=== PATIENT | female | born 1950 | race Caucasian/White ===

== ENCOUNTER 2024-01-18 13:08 | Emergency (ER) | payer SELFPAY ==
[2024-01-18 13:10] VITALS: BP 137/96
[2024-01-18 13:38] LABS: % Basophils 0.7 % (0-2); % Eosinophils 1.4 % (0-6); % Immature Granulocytes 0.2 % (0-0.5); % Lymphocytes 19.2 % (20.5-51.1); % Monocytes 4.1 % (1.7-9.3); % Neutrophils 74.4 % (42.2-75.2); Absolute Eosinophils 0.1 10^3/uL (0-0.7); Absolute Lymphocytes 1.1 10^3/uL (1.2-3.4); Absolute Monocytes 0.2 10^3/uL (0.1-0.6); Absolute Neutrophils 4.3 10^3/uL (1.4-6.5); Hematocrit 40.6 % (37.0-47.0); Hemoglobin 12.9 g/dL (12.0-16.0); Mean Corp Hgb Conc. 31.8 g/dL (33.0-37.0); Mean Corpuscular Hgb 29.5 pg (27.0-31.0); Mean Corpuscular Volume 92.7 fL (81.0-99.0); Mean Platelet Volume 9.9 fL (7.4-10.4); Nucleated Red Blood Cells % 0 %; Platelet Count 286 10^3/uL (130-400); Red Blood Cell Count 4.38 10^6/uL (4.20-5.40); Red Cell Dist. Width 14.3 % (11.5-14.5); White Blood Cell Count 5.8 10^3/uL (4.8-10.8)
[2024-01-18 13:58] LABS: ALT (SGPT) 17 U/L (0-35); AST (SGOT) 22 U/L (14-36); Albumin 4.5 g/dl (3.5-5.0); Alkaline Phosphatase 80 U/L (38-126); Blood Urea Nitrogen 18 mg/dl (7-17); Calcium 10.2 mg/dl (8.4-10.2); Carbon Dioxide 28 mmol/L (22-30); Chloride 102 mmol/L (98-107); Glucose 185 mg/dl (70-99); Potassium 3.4 mmol/L (3.5-5.1); Sodium 139 mmol/L (135-145); Total Bilirubin 0.5 mg/dl (0.2-1.3); Total Protein 6.5 g/dl (6.3-8.2)
[2024-01-18 14:07] LABS: Troponin I < 0.012 ng/ml
[2024-01-18 15:02] VITALS: BP 123/94
[2024-01-18 15:32] VITALS: BP 123/94
--- NOTE | 2024-01-18 15:36 | ED.GENMED ---
History of Present Illness
General
Chief Complaint: Chest Pain
Source: patient, spouse and family (Son)
Exam Limitations: none
Time Seen by Provider: 01/18/24 15:14
Nursing documentation reviewed up to this point in time: agreed with
History of Present Illness
History of Present Illness:
73-year-old female with a past medical history of hypertension, hyperlipidemia, diabetes, vascular dementia who presents to the emergency room for evaluation of upper abdominal discomfort and abnormal EKG. Patient is somewhat limited as a historian
as she has a history of vascular dementia but her family is at bedside and helps to provide collateral history. She recently moved from [place] to be closer to her family. Medical records were not sent over to her new primary doctor as of yet.
Today she had an appoint with her primary doctor because she has been complaining of occasional pain in the upper abdomen under the left breast. It seems to be worse with movement, no other clear triggers noted. It sounds like onset of symptoms
started shortly after a cold during which she was coughing and initially they thought it could be related to irritation/strain of the ribs from coughing but symptoms have persisted for 4 weeks now which prompted them to schedule PCP appointment to
have this evaluated. At the appointment she had an EKG which was abnormal and so she was referred to the emergency room be assessed. At present patient denies any symptoms and says that she feels well. Patient and family not noticed any
respiratory issues. No vomiting. She is still eating. No other symptoms noted. She has no known history of heart problems.
Review of Systems
Review of Systems
All Other Systems: ROS reviewed and negative except as documented in HPI and ROS
Constitutional: Denies fever
Respiratory: Denies cough or trouble breathing
Cardiac: Denies chest pain or palpitations
ABD/GI: Reports abdominal pain (Intermittent-denies of present); Denies nausea or vomiting
: Denies flank pain
Musculoskeletal: Denies edema, neck pain or back pain
Neurological: Denies headache
Phy Exam
Physical Exam
Physical Exam:
General: Awake, alert; no acute distress
Head: Normocephalic, atraumatic
Eyes: Conjunctiva normal, sclera anicteric
Throat: Airway intact, handling secretions
Neck: Trachea midline, supple without meningismus
Lungs: Clear to auscultation bilaterally, no wheezing, rales, rhonchi
Heart: Regular rate and rhythm, no murmurs, gallops, or rubs
Abd: Soft, non distended, nontender
Neuro: No gross deficit
Skin: no rash
Extremities: Warm and well-perfused with no edema
Scores
Heart Failure Risk
Heart Failure Risk Score: Not Applicable
Heart Score for Chest Pain Patients
STEMI patient?: Not applicable
Withdrawal Assessment of Alcohol
Withdrawal Assessment Completed?: Not applicable
Course
Orders/Labs/Results
Orders:
Orders
01/18/24 13:14
Electrocardiogram (*1) Urgent
Reason for Study: Abnormal EKG
EKG- Treatment ONCE
01/18/24 13:24
CMP [Comprehensive Metabolic Panel] Urgent
Complete Blood Count/With Diff Urgent
Lipase Urgent
Comment: ADD ON
Troponin I Urgent
01/18/24 15:41
Add On- LAB Urgent
Tests Added?: lipase
CR Chest - 2 Views Urgent
Comment:
Reason For Exam: LUQ pain s/p viral illness/cough
Abnormal Lab Results
01/18/24
13:24
MCHC 31.8 L g/dL
(33.0-37.0)
Absolute Lymphs (auto) 1.1 L 10^3/uL
(1.2-3.4)
Lymphocytes % 19.2 L %
(20.5-51.1)
Potassium 3.4 L mmol/L
(3.5-5.1)
BUN 18 H mg/dl
(7-17)
Creatinine 1.2 H mg/dL
(0.6-1.0)
Glucose 185 H mg/dl
(70-99)
01/18/24 13:24
01/18/24 13:24
Vital Signs
Initial and Last Documented VS:
Initial Vital Signs
Temp Pulse Resp BP Pulse Ox
36.9 C 88 16 137/96 96
01/18/24 13:10 01/18/24 13:10 01/18/24 13:10 01/18/24 13:10 01/18/24 13:10
Last Documented Vital Signs
Temp Pulse Resp BP Pulse Ox
36.9 C 75 21 123/94 93
01/18/24 13:10 01/18/24 15:32 01/18/24 15:32 01/18/24 15:32 01/18/24 15:32
MDM/Problems Addressed
Differential Diagnosis Includes:
Costochondritis, rib fracture, pneumothorax, left lower lobe pneumonia, gastritis, angina/ACS considered somewhat less likely based on history
MDM/Problems Addressed:
73-year-old female presents with her family that she was sent in by her primary doctor after having an abnormal EKG; she was being seen in the office for intermittent left upper quadrant abdominal pain that started 4 weeks ago after she was getting
over cold/cough. Currently symptom-free in the emergency room. Vitals are normal. Exam as above. Will check repeat EKG. Check labs including a CBC and a CMP, troponin. Check lipase. Will check chest x-ray to rule out a left lower lobe
pneumonia. Will reassess after the above.
Initial labs reviewed: CBC unremarkable, CMP shows creatinine of 1.2�unclear baseline. Mild hyperglycemia in the setting of known diabetes. Marginal hypokalemia. Troponin undetectable. Awaiting chest x-ray.
Chest x-ray reviewed by me shows no acute disease. Patient vitals have been stable, remained symptom-free and well-appearing. She is stable for discharge, will refer to cardiology for outpatient follow-up of her abnormal EKG. Can follow-up with
her primary care physician as scheduled. Patient and family are very comfortable with this plan. Spoke about return precautions and all questions were answered.
*Radiology
Radiology exam reviewed: preliminary read by ED provider
*Pulse Oximetry
Patient hypoxic: no
*EKG
Interpreted by ED Provider?: Yes
Comparison EKG: no comparison EKG present
Heart Rate: 85
Rate: normal
Rhythm: sinus
[place]: normal axis
Interval: normal interval
QRS Pattern: normal QRS
Ischemia: other (Inferior infarct age undetermined, poor R wave progression)
*Critical Care Note
Total Time (30-74mins, 75-104mins- exclusive of procedures): Not Applicable
Data Reviewed
Source: patient, spouse, family and physician (Primary care physician who called ahead)
Further Testing Considered But Not Given:
Considered need for CT abdomen or upper abdominal ultrasound but with no symptoms at present and no abdominal tenderness no indication for emergent abdominal imaging
Patient Management
Discussion with other providers: PCP
ED Attending Note
-
Portions of this chart may have been created with voice recognition software.� Occasional wrong word or��sound alike� substitutions may have occurred due to the inherent limitations of voice recognition software.
Discharge Plan
Departure
Patient Disposition: Home (Routine Discharge)
Date of Disposition: 01/18/24
Time of Disposition: 16:17
Patient with high blood pressure during this ER visit?: No
Discharge Problem:
Intermittent upper abdominal pain, Abnormal ECG, Creatinine elevation, Electrolyte abnormality
Instructions: Costochondritis (DC), Chest Pain CBC Follow Up
Referrals:
Misha Limon MD [Active] - Call in 1-3 days for appt (Cardiology--follow up for further testing regarding abnormal EKG)
Gayatri Hickey DO [Family Provider] - Call in 1-3 days for appt (Call to schedule follow up after your ED visit and to discuss follow up blood work)
Activity Restrictions/Additional Instructions:
Thank you for visiting the Emergency Department at [facility].
1. Please schedule a follow up appointment as directed. Call first thing tomorrow morning to make an appointment.
2. If indicated, please take your medications as instructed and indicated on discharge paperwork.
3. If any of your symptoms do not improve, or persist, or become more severe within 6-12 hours, please return to the emergency department for further care.
4. Please return to the emergency department if you develop a headache, neck pain/stiffness, fever greater than 100.4F, chest pain, shortness of breath, persistent nausea, vomiting, slurred speech, difficulty walking, numbness/tingling, weakness,
signs of infection or any other symptoms that are worrisome to you.
Please call [phone] if you have any questions.
Interventions
Interventions:
*Risk Screen - Suicide Last Done: 01/18/24 15:32
*General Assessment Last Done: 01/18/24 13:10
*Neglect/Abuse Screening Last Done: 01/18/24 15:32
*ED COVID-19 Vaccine History Last Done: 01/18/24 13:10
ED- Cardiac Assessment Last Done: 01/18/24 15:30
Discharge Date and Time
Print Language: UZBEK
[2024-01-18 16:11] LABS: Lipase 42 U/L (23-300)
[2024-01-18 16:16] VITALS: BP 144/94
== END 2024-01-18 16:30 | disposition home or self-care (01) ==
LOC: EMR 13:08
PROVIDERS: Emergency Medicine; EMERGENCY PHYSICIAN Emergency Medicine; FAMILY PHYSICIAN Family Medicine
DX: R10.12 Left upper quadrant pain (principal); R94.31 Abnormal electrocardiogram [ECG] [EKG]; R79.89 Other specified abnormal findings of blood chemistry; E87.8 Other disorders of electrolyte and fluid balance, not elsewhere classified
CPT/HCPCS: 99285; 71046; 80053; 83690; 84484; 85025; 93005

== ENCOUNTER → 2024-05-28 12:58 | Outpatient (REF) | payer MEDICARE, OTHER, SELFPAY | LOC: HWRAD 12:58 | PROVIDERS: ATTENDING PHYSICIAN Family Medicine | DX: Z78.0 Asymptomatic menopausal state (principal); Z12.31 Encounter for screening mammogram for malignant neoplasm of breast; R07.81 Pleurodynia | CPT/HCPCS: 71101; 77063; 77067; 77080 ==

== ENCOUNTER → 2024-08-04 10:47 | Outpatient (REF) | payer MEDICARE, OTHER, SELFPAY | LOC: RAD 10:47 | PROVIDERS: ATTENDING PHYSICIAN Student in an Organized Health Care Education/Training Program | DX: R91.8 Other nonspecific abnormal finding of lung field (principal) | CPT/HCPCS: 71250 ==

== ENCOUNTER 2024-09-05 17:37 | Emergency (ER) | payer MEDICARE, OTHER, SELFPAY ==
[2024-09-05 17:42] VITALS: BP 145/91
[2024-09-05 18:26] LABS: % Basophils 0.8 % (0-2); % Eosinophils 1.1 % (0-6); % Immature Granulocytes 0.3 % (0-0.5); % Lymphocytes 22.6 % (20.5-51.1); % Monocytes 5.1 % (1.7-9.3); % Neutrophils 70.1 % (42.2-75.2); Absolute Basophils 0.1 10^3/uL (0-0.2); Absolute Eosinophils 0.1 10^3/uL (0-0.7); Absolute Lymphocytes 1.5 10^3/uL (1.2-3.4); Absolute Monocytes 0.3 10^3/uL (0.1-0.6); Absolute Neutrophils 4.7 10^3/uL (1.4-6.5); Hematocrit 40.8 % (37.0-47.0); Hemoglobin 13.6 g/dL (12.0-16.0); Mean Corp Hgb Conc. 33.3 g/dL (33.0-37.0); Mean Corpuscular Hgb 29.4 pg (27.0-31.0); Mean Corpuscular Volume 88.1 fL (81.0-99.0); Mean Platelet Volume 9.3 fL (7.4-10.4); Nucleated Red Blood Cells % 0 %; Platelet Count 350 10^3/uL (130-400); Red Blood Cell Count 4.63 10^6/uL (4.20-5.40); Red Cell Dist. Width 14.5 % (11.5-14.5); White Blood Cell Count 6.6 10^3/uL (4.8-10.8)
[2024-09-05 18:42] LABS: ALT (SGPT) 22 U/L (0-35); AST (SGOT) 22 U/L (14-36); Albumin 4.6 g/dl (3.5-5.0); Alkaline Phosphatase 109 U/L (38-126); Blood Urea Nitrogen 21 mg/dl (7-17); Calcium 10.3 mg/dl (8.4-10.2); Carbon Dioxide 27 mmol/L (22-30); Chloride 102 mmol/L (98-107); Glucose 105 mg/dl (70-99); Lipase 50 U/L (23-300); Potassium 3.8 mmol/L (3.5-5.1); Sodium 138 mmol/L (135-145); Total Bilirubin 0.7 mg/dl (0.2-1.3); Total Protein 7.2 g/dl (6.3-8.2); eGFR 58.75
[2024-09-05 19:46] VITALS: BMI 31.2
[2024-09-05 20:10] VITALS: BP 140/96
--- NOTE | 2024-09-05 20:15 | ED.GENMED ---
Addendum entered and electronically signed by Willian Palomino, DO 09/05/24 22:52:
Update CT noted, will confirm she is a non-smoker, started on a bowel regimen
Original Note:
History of Present Illness
General
Chief Complaint: Abdominal Pain
Source: patient and spouse
Exam Limitations: dementia
Time Seen by Provider: 09/05/24 19:36
History of Present Illness
History of Present Illness:
74-year-old female with dementia diabetes hypertension and chronic constipation presents with abdominal pain mid upper abdomen last evening, better today, no fevers no nausea no vomiting she is hungry, thirsty did not drink much today
brought her in to be evaluated, denies any chest pain or shortness of breath denies any prior abdominal surgeries last normal bowel movement was 5 days ago
Past History
Past History
ED Past Medical History: HTN, NIDDM and Psychiatric (Dementia)
ED Past Surgical History: Negative Appendectomy, Bowel resection or Cholecystectomy
Phy Exam
Physical Exam
Physical Exam:
Physical Exam
General: no apparent distress, not acutely ill
Neck: No jaundice
Heart: s1/s2 regular rate and rhythm, no murmur. equal radial pulses.
Lungs: no acute respiratory distress. clear bilaterally
Abdomen: Soft, minimal epigastric tenderness no guarding or rebound no scars appreciated
Neuro: alert and oriented. no focal neurological deficits
Skin: no rash
Psychiatric: well kept. interactive and cooperative
Extremities: no edema
Course
Orders/Labs/Results
Orders:
Orders
09/05/24 17:48
Electrocardiogram (*1) Urgent
Reason for Study: Abdominal Pain
09/05/24 17:49
EKG- Treatment ONCE
09/05/24 18:14
Complete Blood Count/With Diff Urgent
Comprehensive Metabolic Panel Urgent
Lipase Urgent
09/05/24 18:31
Urinalysis Reflex To Culture Urgent
09/05/24 19:58
CT Abd/pelvis W Iv Cont Urgent
Comment:
Reason For Exam: uper abd pain
0.9% Sodium Chloride 1000 ml [Nss] 1,000 ml IV BOLUS
09/05/24 20:09
Troponin I Urgent
Abnormal Lab Results
09/05/24
18:14
BUN 21 H mg/dl
(7-17)
Glucose 105 H mg/dl
(70-99)
Calcium 10.3 H mg/dl
(8.4-10.2)
09/05/24 18:14
09/05/24 18:14
Vital Signs
Initial and Last Documented VS:
Initial Vital Signs
Temp Pulse Resp BP Pulse Ox
98.4 F 94 20 145/91 94
09/05/24 17:42 09/05/24 17:42 09/05/24 17:42 09/05/24 17:42 09/05/24 17:42
Last Documented Vital Signs
Temp Pulse Resp BP Pulse Ox
98.4 F 94 20 140/96 93
09/05/24 17:42 09/05/24 17:42 09/05/24 17:42 09/05/24 20:10 09/05/24 20:10
MDM/Problems Addressed
Differential Diagnosis Includes:
Constipation, colic, biliary colic pancreatitis diverticulitis appendicitis
MDM/Problems Addressed:
Abdominal pain
Chronic conditions affecting care:
Dementia diabetes hypertension
Chronic conditions affecting care: DM and HTN
Acute Exacerbation and/or Progression of Chronic Illness:
Dementia diabetes hypertension
Acute Exacerbation and/or Progression of Chronic Illness: DM and HTN
*Radiology
Radiology exam reviewed: radiology read reviewed
*Pulse Oximetry
Patient hypoxic: no
*EKG
Interpreted by ED Provider?: Yes
Interpretation: normal
Comparison EKG: no comparison EKG present
Heart Rate: 78
Rate: normal
Rhythm: sinus
Ischemia: non-specific ST changes
*Sql Application Developer Interpretation
Rate: normal
Interpretation: normal
Heart Rate: 78
Rhythm: sinus
*Critical Care Note
Total Time (30-74mins, 75-104mins- exclusive of procedures): Not Applicable
Update Note
Update Note:
Update, troponin EKG noted other labs noted,
ED Attending Note
-
Portions of this chart may have been created with voice recognition software.� Occasional wrong word or��sound alike� substitutions may have occurred due to the inherent limitations of voice recognition software.
Discharge Plan
Departure
Referrals:
Lm Restrepo MD [Family Provider] -
Interventions
Interventions:
*Risk Screen - Suicide Last Done: 09/05/24 17:42
*General Assessment Last Done: 09/05/24 20:12
*Neglect/Abuse Screening Last Done: 09/05/24 20:12
*ED- Fall Risk Assessment Last Done: 09/05/24 20:12
*ED COVID-19 Vaccine History Last Done: 09/05/24 20:12
EI-Nzercg-Lmukfgtutn Assessment Last Done: 09/05/24 20:12
Discharge Date and Time
Print Language: ARABIC
[2024-09-05] MEDS: NSS 1000 IV (20:18)
[2024-09-05 20:42] LABS: Troponin I < 0.012 ng/ml
[2024-09-05 21:00] VITALS: BP 158/89
[2024-09-05 21:58] LABS: Urine Albumin 1+ (Neg - Trace); Urine Bilirubin Negative (Negative); Urine Character Clear (Clear); Urine Color Yellow; Urine Glucose Negative (Negative); Urine Ketone Negative (Negative); Urine Leukocyte Negative (Negative); Urine Nitrite Negative (Negative); Urine Occult Blood 1+ (Negative); Urine Urobilinogen Negative (Neg - 1+)
[2024-09-05 22:00] VITALS: BP 162/91
[2024-09-05 22:15] LABS: Urine Bacteria Few (Negative); Urine Red Blood Cell 0-2 /HPF (0-2)
--- NOTE | 2024-09-05 22:49 | ED.GENMED ---
History of Present Illness
General
Chief Complaint: Abdominal Pain
Time Seen by Provider: 09/05/24 19:36
Past History
Past History
ED Past Medical History: HTN, NIDDM and Psychiatric (Dementia)
ED Past Surgical History: Negative Appendectomy, Bowel resection or Cholecystectomy
Social History
Alcohol: None
Drug: None
Personal:
Living: with family
Employment: Retired
Course
Orders/Labs/Results
Orders:
Orders
09/05/24 17:48
Electrocardiogram (*1) Urgent
Reason for Study: Abdominal Pain
09/05/24 17:49
EKG- Treatment ONCE
09/05/24 18:14
Complete Blood Count/With Diff Urgent
Comprehensive Metabolic Panel Urgent
Lipase Urgent
09/05/24 19:58
CT Abd/pelvis W Iv Cont Urgent
Comment:
Reason For Exam: uper abd pain
0.9% Sodium Chloride 1000 ml [Nss] 1,000 ml IV BOLUS
09/05/24 20:09
Troponin I Urgent
09/05/24 21:48
Urinalysis Reflex To Culture Urgent
Urine Microscopic Reflex Cult Urgent
Urine Culture Urgent
PAULA Source: U
Specimen Description:
09/05/24 22:49
Magnesium Hydroxide [Milk of Magnesia] 30 ml PO NOW STA
Abnormal Lab Results
09/05/24 09/05/24
18:14 21:48
BUN 21 H mg/dl
(7-17)
Glucose 105 H mg/dl
(70-99)
Calcium 10.3 H mg/dl
(8.4-10.2)
Ur Occult Blood Reflex 1+ A
(Negative)
Urine WBC (Reflex) 11-15 A /HPF
(0-5)
Urine Bacteria (Reflex) Few A
(Negative)
Urine Albumin (Reflex) 1+ A
(Neg - Trace)
09/05/24 18:14
09/05/24 18:14
Vital Signs
Initial and Last Documented VS:
Initial Vital Signs
Temp Pulse Resp BP Pulse Ox
98.4 F 94 20 145/91 94
09/05/24 17:42 09/05/24 17:42 09/05/24 17:42 09/05/24 17:42 09/05/24 17:42
Last Documented Vital Signs
Temp Pulse Resp BP Pulse Ox
98.4 F 94 20 162/91 93
09/05/24 17:42 09/05/24 17:42 09/05/24 17:42 09/05/24 22:00 09/05/24 21:50
Update Note
Update Note:
10:[address] noted to confirm that she is a non-smoker discharged on a bowel regimen
ED Attending Note
-
Portions of this chart may have been created with voice recognition software.� Occasional wrong word or��sound alike� substitutions may have occurred due to the inherent limitations of voice recognition software.
Discharge Plan
Departure
Patient Disposition: Home (Routine Discharge)
Date of Disposition: 09/05/24
Time of Disposition: 22:50
Patient with high blood pressure during this ER visit?: No
Condition: Good
Discharge Problem:
Abdominal pain
Instructions: Constipation, Adult (DC), Abdominal Pain
Prescriptions:
New
magnesium hydroxide [Milk of Magnesia] 400 mg/5 mL suspension
400 mg PO HS PRN (Reason: Constipation) Qty: 3780 0RF
Referrals:
Lm Restrepo MD [Family Provider] - Next open appointment
Interventions
Interventions:
*Risk Screen - Suicide Last Done: 09/05/24 17:42
*General Assessment Last Done: 09/05/24 20:12
*Neglect/Abuse Screening Last Done: 09/05/24 20:12
*ED- Fall Risk Assessment Last Done: 09/05/24 20:12
*ED COVID-19 Vaccine History Last Done: 09/05/24 20:12
FU-Ylvpfi-Lwxenpkcot Assessment Last Done: 09/05/24 20:12
Discharge Date and Time
Print Language: WELSH
[2024-09-05] MEDS: MILK OF MAGNESIA 30 ML PO (22:58)
[2024-09-05 23:00] VITALS: BP 158/95
== END 2024-09-05 23:15 | disposition home or self-care (01) ==
LOC: EMR 17:37
PROVIDERS: Emergency Medicine; EMERGENCY PHYSICIAN Emergency Medicine; FAMILY PHYSICIAN Student in an Organized Health Care Education/Training Program
DX: R10.10 Upper abdominal pain, unspecified (principal); E11.9 Type 2 diabetes mellitus without complications; F03.90 Unspecified dementia, unspecified severity, without behavioral disturbance, psychotic disturbance, mood disturbance, and anxiety; I10 Essential (primary) hypertension; Z90.49 Acquired absence of other specified parts of digestive tract
CPT/HCPCS: 96360; 99284; 74177; 80053; 81003; 81015; 83690; 84484; 85025; 87086; 93005; Q9967

== ENCOUNTER → 2024-11-27 11:29 | Outpatient (REF) | payer MEDICARE, OTHER, SELFPAY | LOC: RAD 11:29 | PROVIDERS: ATTENDING PHYSICIAN Otolaryngology Facial Plastic Surgery; FAMILY PHYSICIAN Student in an Organized Health Care Education/Training Program | DX: R05.3 Chronic cough (principal); R13.12 Dysphagia, oropharyngeal phase | CPT/HCPCS: 74221 ==

== ENCOUNTER 2024-12-18 12:06 | Emergency (ER) | payer MEDICARE, OTHER, SELFPAY ==
[2024-12-18 12:18] VITALS: BP 117/78
--- NOTE | 2024-12-18 14:18 | ED.GENMED ---
History of Present Illness
General
Chief Complaint: Fall
Source: patient, spouse and family
Time Seen by Provider: 12/18/24 14:12
History of Present Illness
History of Present Illness:
74-year-old female presents to the emergency room for evaluation after falling in the shower. Patient lost her balance and fell in the shower striking the back of her head. No loss of consciousness. Patient does take Eliquis which has been
recurrent for checkup. Patient does have a history of vascular dementia. She has been tolerating oral intake since the fall. She has been ambulating at her baseline which is requiring assistance since the fall. Patient denies any significant
pain at this time. She did take a Tylenol prior to coming to the emergency room. She denies any other injuries.
Past History
Past History
ED Past Medical History: HTN, NIDDM and Psychiatric (Dementia)
ED Past Surgical History: Negative Appendectomy, Bowel resection or Cholecystectomy
Phy Exam
Physical Exam
Physical Exam:
General: Awake, Alert, Oriented X3. No acute distress.
Vitals: unremarkable
Head: Moderate cephalohematoma upper occipital scalp
Eyes: Pupils equal, EOMI
Throat: Airway intact, no exudates
Neck: Trachea midline, no tenderness to palpation along the cervical spine
Lungs: Clear and equal b/l
Heart: Regular rate, no murmurs
Abd: Soft, Nontender, No pulsatile mass
Neuro: Cranial nerves intact, muscle strength equal bilaterall
Skin: Warm, dry, no rash
Extremities: pulses equal b/l, no edema
Course
Orders/Labs/Results
Orders:
Orders
12/18/24 12:[address] [CT Head W/o Iv Contrast] Urgent
Comment:
Reason For Exam: fall on thinners
Vital Signs
Initial and Last Documented VS:
Initial Vital Signs
Temp Pulse Resp BP Pulse Ox
98.7 F 98 18 117/78 98
12/18/24 12:18 12/18/24 12:18 12/18/24 12:18 12/18/24 12:18 12/18/24 12:18
Last Documented Vital Signs
Temp Pulse Resp BP Pulse Ox
98.7 F 98 18 117/78 98
12/18/24 12:18 12/18/24 12:18 12/18/24 12:18 12/18/24 12:18 12/18/24 14:22
MDM/Problems Addressed
Differential Diagnosis Includes:
Subdural hematoma, subarachnoid hemorrhage, concussion, contusion
MDM/Problems Addressed:
Patient presents with head injury. CT of the head shows no acute intracranial injury or bleeding. She has some chronic age-related changes. No further intervention necessary here in the emergency room. Patient stable for discharge home with
follow-up as an outpatient.
*Radiology
Radiology exam reviewed: radiology read reviewed
*Pulse Oximetry
SaO2: 98
Oxygen Mode of Delivery: Room air
Patient hypoxic: no
*Critical Care Note
Total Time (30-74mins, 75-104mins- exclusive of procedures): Not Applicable
ED Attending Note
-
Portions of this chart may have been created with voice recognition software.� Occasional wrong word or��sound alike� substitutions may have occurred due to the inherent limitations of voice recognition software.
Discharge Plan
Departure
Patient Disposition: Home (Routine Discharge)
Date of Disposition: 12/18/24
Time of Disposition: 14:21
Patient with high blood pressure during this ER visit?: No
Condition: Good
Discharge Problem:
Head injury, Hematoma of occipital region of scalp
Instructions: Head Injury in Adults (DC)
Prescriptions:
No Action
magnesium hydroxide [Milk of Magnesia] 400 mg/5 mL suspension
400 mg PO HS PRN (Reason: Constipation) Qty: 3780 0RF
Referrals:
UNKNOWN - PT NOT,INTERVIEWE [Family Provider]
Interventions
Interventions:
*Risk Screen - Suicide Last Done: 12/18/24 12:18
*General Assessment Last Done: 12/18/24 12:18
*Neglect/Abuse Screening Last Done: 12/18/24 12:18
*ED COVID-19 Vaccine History Last Done: 12/18/24 12:48
*Nursing Disposition Last Done: 12/18/24 14:31
ED-Musculoskeletal Assessment Last Done: 12/18/24 12:48
ED- Neurological Assessment Last Done: 12/18/24 12:48
ED-Skin Assessment Last Done: 12/18/24 12:48
Discharge Date and Time
Discharge Date/Time: 12/18/24 14:32
Print Language: EGYPTIAN
== END 2024-12-18 14:32 | disposition home or self-care (01) ==
LOC: EMR 12:06
PROVIDERS: EMERGENCY PHYSICIAN Emergency Medicine
DX: S00.03XA Contusion of scalp, initial encounter (principal); W18.2XXA Fall in (into) shower or empty bathtub, initial encounter; Y93.E1 Activity, personal bathing and showering; F01.50 Vascular dementia, unspecified severity, without behavioral disturbance, psychotic disturbance, mood disturbance, and anxiety; E11.9 Type 2 diabetes mellitus without complications; I10 Essential (primary) hypertension; Z79.01 Long term (current) use of anticoagulants
CPT/HCPCS: 99284; 70450